=== PATIENT | female | born 1990 ===

== ENCOUNTER 2017-02-13 01:35 | Emergency (ER) | payer OTHER ==
[2017-02-13 02:02] VITALS: BMI 25.0
[2017-02-13 02:03] VITALS: BP 108/69; PULSE 76; RESP 18; TEMP 98; O2SAT 99
[2017-02-13] MEDS ORDERED: Sodium Chloride 0.9% 1,000 ML IV STA (02:03)
[2017-02-13] MEDS ORDERED: Alum-Mag Hydrox-Simethicone Susp (30 mL) PO ONE (02:09)
--- NOTE | 2017-02-13 02:09 | ED PDOC ---
HPI: Abdomen Time Seen by Provider: 02/13/17 02:07 Chief Complaint (Nursing): Abdominal Pain Chief Complaint (Provider): abdominal pain History Per: Patient (26 y/o female here with complaint epigastric pain intermittently x 4 days gradually worsening. Took motrin with no relief. Denies any dysuria. No h/o abdominal surgeries.) Past Medical History Reviewed: Historical Data, Nursing Documentation, Vital Signs Vital Signs: Last Vital Signs Temp 98.0 F 02/13/17 02:00 Pulse 76 02/13/17 02:00 Resp 18 02/13/17 02:00 BP 108/69 02/13/17 02:00 Pulse Ox 99 02/13/17 02:09 - Medical History PMH: Anxiety Denies: Chronic Kidney Disease - Family History Family History: States: No Known Family Hx - Home Medications Home Medications: Ambulatory Orders Medication Instructions Recorded Ibuprofen [Motrin] 600 mg PO Q6H PRN #20 tab 05/08/15 Nitrofurantoin Macrocrystals 100 mg PO BID #14 cap 05/08/15 [Macrobid] Ranitidine HCl [Zantac] 150 mg PO Q12 PRN #10 tablet 02/13/17 - Allergies Allergies/Adverse Reactions: Allergies Allergy/AdvReac Type Severity Reaction Status Date / Time No Known Allergies Allergy Verified 05/08/15 12:52 Review of Systems ROS Statement: Except As Marked, All Systems Reviewed And Found Negative Gastrointestinal: Positive for: Abdominal Pain Physical Exam - Reviewed Nursing Documentation Reviewed: Yes Vital Signs Reviewed: Yes - Physical Exam Appears: Positive for: Well, Non-toxic, No Acute Distress Head Exam: Positive for: ATRAUMATIC, NORMAL INSPECTION, NORMOCEPHALIC Skin: Positive for: Normal Color, Warm, DRY Eye Exam: Positive for: EOMI, Normal appearance, PERRL ENT: Positive for: Normal ENT Inspection Neck: Positive for: Normal, Painless ROM Cardiovascular/Chest: Positive for: Regular Rate, Rhythm Respiratory: Positive for: CNT, Normal Breath Sounds Gastrointestinal/Abdominal: Positive for: Normal Exam, Bowel Sounds, Soft Back: Positive for: Normal Inspection Extremity: Positive for: Normal ROM Neurologic/Psych: Positive for: Alert, Oriented - Laboratory Results Result Diagrams: 02/13/17 02:36 02/13/17 02:36 Urine POC: Negative Urine dip results: Positive for: Leukocyte Esterase (trace). Negative for: Blood, Ketones, Glucose, Bilirubin, Protein - ECG O2 Sat by Pulse Oximetry: 99 - Progress ED Course And Treament: pepcid 20 mg iv x 1 dose zofran 4 mg i vx 1 dose maalox 30 ml po lidocaine viscous 5 ml po x 1 dose Disposition - Clinical Impression Clinical Impression: Gastritis - Patient ED Disposition Is Patient to be Admitted: No - Disposition Referrals: [facility] [Outside] Disposition: Routine/Home Disposition Time: 03:12 Condition: FAIR Prescriptions: Ranitidine HCl [Zantac] 150 mg PO Q12 PRN #10 tablet PRN Reason: Pain, Moderate (4-7) Instructions: Gastritis (GEN), Diet for Ulcers and Gastritis (GEN) Forms: [employer] (Persian), [facility] ED School/Work Excuse Print Language: YAKUT
[2017-02-13] MEDS ORDERED: Alum-Mag Hydrox-Simethicone Susp (30 mL) ONE (02:16)
[2017-02-13 02:29] LABS: SQUAMOUS EPITHIAL 2 /hpf (0-5); URINE BACTERIA RARE (<OCC); URINE BILIRUBIN NEGATIVE (NEGATIVE); URINE BLOOD SMALL (NEGATIVE); URINE CLARITY SLIGHTY-CLOUDY (Clear); URINE COLOR YELLOW (YELLOW); URINE GLUCOSE (UA) NEG (Normal); URINE LEUKOCYTE ESTERASE NEG Leu/uL (Negative); URINE NITRATE NEGATIVE (NEGATIVE); URINE PROTEIN NEGATIVE (NEGATIVE); URINE UROBILINOGEN 0.2-1.0 mg/dL (0.2-1.0)
[2017-02-13 02:38] LABS: BASO # 0.1 K/uL (0.0-0.2); BASO % 0.4 % (0.0-2.0); EOS # 0.1 K/uL (0.0-0.7); HEMOGLOBIN 12.2 g/dL (12.0-16.0); LYMPH # 1.8 K/uL (1.0-4.3); LYMPH % 12.8 % (20.0-40.0); MEAN CELL VOLUME 87.2 fl (81.0-99.0); MEAN CORPUSCULAR HEMOGLOBIN 28.6 pg (27.0-31.0); MEAN CORPUSCULAR HGB CONC 32.8 g/dL (33.0-37.0); MEAN PLATELET VOLUME 8.6 fl (7.2-11.7); MONO # 0.7 K/uL (0.0-0.8); MONO % 4.7 % (0.0-10.0); NEUT # 11.3 K/uL (1.8-7.0); NEUT % 81.1 % (50.0-75.0); RBC 4.26 Mil/uL (3.80-5.20); RED CELL DISTRIBUTION WIDTH 13.2 % (11.5-14.5); WHITE BLOOD COUNT 13.9 K/uL (4.8-10.8)
[2017-02-13 02:52] LABS: ALB/GLOB RATIO 1.3 (1.0-2.1); ALBUMIN 3.9 g/dL (3.5-5.0); ALT/SGPT 33 U/L (9-52); AST/SGOT 21 U/L (14-36); BLOOD UREA NITROGEN 11 mg/dl (7-17); CALCIUM 8.7 mg/dL (8.4-10.2); GFR AFRICAN-AMERICAN > 60; GFR NON-AFRICAN AMERICAN > 60; LIPASE 40 U/L (23-300)
== END 2017-02-13 04:19 | disposition home or self-care (01) ==
LOC: H.ER 01:35
DX: K29.70 Gastritis, unspecified, without bleeding (principal); F41.9 Anxiety disorder, unspecified
CPT/HCPCS: 80053; 81003; 83690; 85025; 87086; 96374; 96375; 99283; J2405; J7040

== ENCOUNTER 2018-05-18 05:05 | Emergency (ER) | payer OTHER ==
[2018-05-18 05:16] VITALS: BMI 28.7
[2018-05-18] MEDS ORDERED: Sodium Chloride 0.9% 1,000 ML IV STA (05:53)
--- NOTE | 2018-05-18 05:58 | ED PDOC ---
HPI: Abdomen Time Seen by Provider: 05/18/18 05:13 Chief Complaint (Nursing): Abdominal Pain Chief Complaint (Provider): Abdominal Pain History Per: Patient Onset/Duration Of Symptoms: Days (x1) Current Symptoms Are (Timing): Still Present Location Of Pain/Discomfort: Epigastric Quality Of Discomfort: "Pain" Additional Complaint(s): 27 year old female with history of anxiety and gastritis presents to the ED with one day of midepigastric pain. Patient denies right sided abdominal pain. Patient took Zantac prior to arrival. No further complaints. PMD: none Past Medical History Reviewed: Historical Data, Nursing Documentation, Vital Signs Vital Signs: Last Vital Signs Temp 97.6 F 05/18/18 05:16 Pulse 73 05/18/18 05:16 Resp 18 05/18/18 05:16 BP 126/76 05/18/18 05:16 Pulse Ox 98 05/18/18 05:16 - Medical History PMH: Anxiety, Gastritis Denies: Chronic Kidney Disease - Surgical History Surgical History: No Surg Hx - Family History Family History: States: Unknown Family Hx - Home Medications Home Medications: Ambulatory Orders Medication Instructions Recorded Ibuprofen [Motrin] 600 mg PO Q6H PRN #20 tab 05/08/15 Nitrofurantoin Macrocrystals 100 mg PO BID #14 cap 05/08/15 [Macrobid] Ranitidine HCl [Zantac] 150 mg PO Q12 PRN #10 tablet 02/13/17 - Allergies Allergies/Adverse Reactions: Allergies Allergy/AdvReac Type Severity Reaction Status Date / Time No Known Allergies Allergy Verified 05/18/18 05:16 Review of Systems ROS Statement: Except As Marked, All Systems Reviewed And Found Negative Gastrointestinal: Positive for: Abdominal Pain (epigastric) Physical Exam - Reviewed Nursing Documentation Reviewed: Yes Vital Signs Reviewed: Yes - Physical Exam Appears: Positive for: Non-toxic, No Acute Distress Head Exam: Positive for: ATRAUMATIC, NORMOCEPHALIC Skin: Positive for: Normal Color, Warm, Dry Eye Exam: Positive for: Normal appearance, EOMI, PERRL ENT: Positive for: Normal ENT Inspection Neck: Positive for: Normal Cardiovascular/Chest: Positive for: Regular Rate, Rhythm. Negative for: Murmur Respiratory: Positive for: Normal Breath Sounds. Negative for: Respiratory Distress Gastrointestinal/Abdominal: Positive for: Soft, Tenderness (mild midepigastric tenderness to palpation ) Extremity: Positive for: Normal ROM (upper and lower). Negative for: Pedal Edema, Deformity Neurological/Psych: Positive for: Awake, Alert, Oriented (x3) - Laboratory Results Result Diagrams: 05/18/18 06:17 05/18/18 06:17 - ECG O2 Sat by Pulse Oximetry: 98 (RA) Pulse Ox Interpretation: Normal Medical Decision Making Medical Decision Making: Time: 05 Plan: abdominal pain, midepigastric rule out gastritis, rule out electrolyte abnormality --CMP --Lipase --CBC --IV fluids --Pepcid 20 mg IVP --Zofran 4 mg IV Time: 0700 --Patient signed out to Dr. Rodriguez, pending labs/reeval. -------- --------- Scribe Attestation: Documented by Leslie Matthews, acting as a scribe for Kyler Henderson MD. Provider Scribe Attestation: All medical record entries made by the Scribe were at my direction and personally dictated by me. I have reviewed the chart and agree that the record accurately reflects my personal performance of the history, physical exam, medical decision making, and the department course for this patient. I have also personally directed, reviewed, and agree with the discharge instructions and disposition. Disposition - Clinical Impression Clinical Impression: Abdominal discomfort - Patient ED Disposition Is Patient to be Admitted: Transfer of Care - Disposition Disposition: Transfer of Care Disposition Time: 07:00 Condition: STABLE Forms: [employer] (Greenlandic)
[2018-05-18 06:21] LABS: BASO % 0.3 % (0.0-2.0); EOS # 0.1 K/uL (0.0-0.7); EOS % 0.4 % (0.0-4.0); HEMOGLOBIN 13.1 g/dL (12.0-16.0); LYMPH # 3.3 K/uL (1.0-4.3); LYMPH % 23.8 % (20.0-40.0); MEAN CELL VOLUME 86.5 fl (81.0-99.0); MEAN CORPUSCULAR HEMOGLOBIN 28.9 pg (27.0-31.0); MEAN CORPUSCULAR HGB CONC 33.4 g/dL (33.0-37.0); MEAN PLATELET VOLUME 8.9 fl (7.2-11.7); MONO # 0.9 K/uL (0.0-0.8); MONO % 6.5 % (0.0-10.0); NEUT # 9.5 K/uL (1.8-7.0); RBC 4.53 Mil/uL (3.80-5.20); RED CELL DISTRIBUTION WIDTH 13.2 % (11.5-14.5); WHITE BLOOD COUNT 13.7 K/uL (4.8-10.8)
[2018-05-18] MEDS ORDERED: Morphine 4 MG/ML VIAL IV ONE (06:25)
[2018-05-18] MEDS ORDERED: Morphine 4 MG/ML VIAL ONE (06:27)
[2018-05-18 06:29] LABS: ALB/GLOB RATIO 1.3 (1.0-2.1); ALT/SGPT 43 U/L (9-52); AST/SGOT 25 U/L (14-36); BLOOD UREA NITROGEN 12 mg/dl (7-17); CALCIUM 9.3 mg/dL (8.4-10.2); GFR NON-AFRICAN AMERICAN > 60; LIPASE 31 U/L (23-300)
--- NOTE | 2018-05-18 07:07 | ED PDOC ---
- Laboratory Results Result Diagrams: 05/18/18 06:17 05/18/18 06:17 Lab Results: Total Bilirubin 0.4 mg/dl (0.2-1.3) 05/18/18 06:17 AST 25 U/L (14-36) 05/18/18 06:17 ALT 43 U/L (9-52) 05/18/18 06:17 Alkaline Phosphatase 69 U/L (38-126) 05/18/18 06:17 Total Protein 7.1 G/DL (6.3-8.2) 05/18/18 06:17 Albumin 4.0 g/dL (3.5-5.0) 05/18/18 06:17 Globulin 3.1 gm/dL (2.2-3.9) 05/18/18 06:17 Albumin/Globulin Ratio 1.3 (1.0-2.1) 05/18/18 06:17 Lipase 31 U/L (23-300) 05/18/18 06:17 - ECG O2 Sat by Pulse Oximetry: 98 (RA) Medical Decision Making Medical Decision Making: Time: 0700 --Patient is endorsed to provider by Dr. Henderson, pending US gallbladder and lab results then final disposition. Time: 0900 --US gallbladder FINDINGS: LIVER: Measures 13.6 cm in length. Mildly diffusely increased echogenicity of the liver parenchyma. No mass. No intrahepatic bile duct dilatation. Consider borderline hepatic steatosis or other hepatic infiltrative process. GALLBLADDER: The gallbladder is distended without mural thickening or pericholecystic fluid collection evident. No cholelithiasis appreciable. COMMON BILE DUCT: Measures 4.5 mm. No stones. No dilatation. PANCREAS: The body of the pancreas appears unremarkable but the head and tail are obscured by overling bowel/stomach gas. RIGHT KIDNEY: Measures 9.7 cm in length. Normal echogenicity. No calculus, mass, or hydronephrosis. AORTA: No aneurysmal dilatation. IVC: Unremarkable. OTHER FINDINGS: None . IMPRESSION: Other than partial imaging of the pancreas and borderline hepatic steatosis (or other hepatic infiltrative process), the remainder the examination is unremarkable limited to the right upper quadrant anatomy in the abdomen. Scribe Attestation: Documented by Julisa Gee, acting as a scribe for Soumya Rodriguez MD. Provider Scribe Attestation: All medical record entries made by the Scribe were at my direction and personally dictated by me. I have reviewed the chart and agree that the record accurately reflects my personal performance of the history, physical exam, medical decision making, and the department course for this patient. I have also personally directed, reviewed, and agree with the discharge instructions and disposition. 11.45a - labs and imaging reviewed. Patient is without pain or discomfort. Will d/c with pepcid and zofran and followup in the clinic when [facility] is approved. Disposition Doctor Will See Patient In The: Office Counseled Patient/Family Regarding: Diagnosis - Clinical Impression Clinical Impression: Gastritis - POA Present On Arrival: None - Disposition Referrals: [facility] [Outside] [facility] [Outside] Disposition: Routine/Home Disposition Time: 11:55 Condition: IMPROVED Prescriptions: Famotidine [Pepcid] 20 mg PO BID #28 tab Ondansetron [Zofran] 4 mg PO Q8H #9 tab Instructions: Gastritis Forms: [employer] (Lebanese), [facility] ED School/Work Excuse Print Language: GEORGIAN
--- NOTE | 2018-05-18 10:33 | US ---
Date of service: 05/18/2018 HISTORY: abd pain COMPARISON: None. TECHNIQUE: Sonographic evaluation of the right upper quadrant of the abdomen. FINDINGS: LIVER: Measures 13.6 cm in length. Mildly diffusely increased echogenicity of the liver parenchyma. No mass. No intrahepatic bile duct dilatation. Consider borderline hepatic steatosis or other hepatic infiltrative process. GALLBLADDER: The gallbladder is distended without mural thickening or pericholecystic fluid collection evident. No cholelithiasis appreciable. COMMON BILE DUCT: Measures 4.5 mm. No stones. No dilatation. PANCREAS: The body of the pancreas appears unremarkable but the head and tail are obscured by overling bowel/stomach gas. RIGHT KIDNEY: Measures 9.7 cm in length. Normal echogenicity. No calculus, mass, or hydronephrosis. AORTA: No aneurysmal dilatation. IVC: Unremarkable. OTHER FINDINGS: None . IMPRESSION: Other than partial imaging of the pancreas and borderline hepatic steatosis (or other hepatic infiltrative process), the remainder the examination is unremarkable limited to the right upper quadrant anatomy in the abdomen.
[2018-05-18 12:11] VITALS: BP 105/63; PULSE 69; RESP 16; TEMP 98.6; O2SAT 99
== END 2018-05-18 12:15 | disposition home or self-care (01) ==
LOC: H.ER 05:05
DX: K29.70 Gastritis, unspecified, without bleeding (principal)
CPT/HCPCS: 76705; 80053; 81025; 83690; 85025; 96361; 96374; 96375; 99285; J1885; J2270; J2405; J7030

== ENCOUNTER 2018-07-24 22:22 | Inpatient (IN) | payer MEDICAID, OTHER ==
[2018-07-24 22:22] VITALS: BMI 28.7
[2018-07-24] MEDS ORDERED: Sodium Chloride 0.9% 1,000 ML IV STA (22:59)
--- NOTE | 2018-07-24 23:00 | ED PDOC ---
HPI: Abdomen Chief Complaint (Provider): abdominal pain History Per: Patient History/Exam Limitations: no limitations Onset/Duration Of Symptoms: Hrs (10) Current Symptoms Are (Timing): Still Present Location Of Pain/Discomfort: Diffuse Associated Symptoms: Nausea, Vomiting Additional Complaint(s): 28 y/o female presents for evaluation of abdominal pain x 10 hours. Associated nausea, vomiting x 2. Denies fever, chest pain, shortness of breath, palpitations, changes in bowel movements, urinary symptoms. Tried Zantac with little relief. <Vernell Liu - Last Filed: 07/25/18 05:04> <Wild Fuller - Last Filed: 07/25/18 05:57> Time Seen by Provider: 07/24/18 22:45 Chief Complaint (Nursing): Abdominal Pain Past Medical History Reviewed: Historical Data, Nursing Documentation, Vital Signs Vital Signs: Last Vital Signs Temp 97.5 F L 07/24/18 22:36 Pulse 68 07/24/18 22:36 Resp 18 07/24/18 22:36 BP 94/60 L 07/24/18 22:36 Pulse Ox 99 07/24/18 22:36 Primary Care Provider: Procedure,Nonphys - Medical History PMH: Anxiety, Gastritis Denies: Chronic Kidney Disease - Surgical History Surgical History: No Surg Hx - Family History Family History: States: Unknown Family Hx <Vernell Liu - Last Filed: 07/25/18 05:04> Vital Signs: Last Vital Signs Temp 98.8 F 07/25/18 05:10 Pulse 68 07/25/18 05:10 Resp 18 07/25/18 05:10 BP 109/63 07/25/18 05:10 Pulse Ox 97 07/25/18 05:10 <Wild Fuller - Last Filed: 07/25/18 05:57> - Home Medications Home Medications: Ambulatory Orders Medication Instructions Recorded Ibuprofen [Motrin] 600 mg PO Q6H PRN #20 tab 05/08/15 Nitrofurantoin Macrocrystals 100 mg PO BID #14 cap 05/08/15 [Macrobid] Ranitidine HCl [Zantac] 150 mg PO Q12 PRN #10 tablet 02/13/17 Famotidine [Pepcid] 20 mg PO BID #28 tab 05/18/18 Ondansetron [Zofran] 4 mg PO Q8H #9 tab 05/18/18 - Allergies Allergies/Adverse Reactions: Allergies Allergy/AdvReac Type Severity Reaction Status Date / Time No Known Allergies Allergy Verified 05/18/18 05:16 Review of Systems ROS Statement: Except As Marked, All Systems Reviewed And Found Negative Gastrointestinal: Positive for: Nausea, Vomiting, Abdominal Pain <Sola Liuanda C - Last Filed: 07/25/18 05:04> Physical Exam - Reviewed Nursing Documentation Reviewed: Yes Vital Signs Reviewed: Yes - Physical Exam Appears: Positive for: Well, Non-toxic, Uncomfortable Head Exam: Positive for: ATRAUMATIC, NORMAL INSPECTION, NORMOCEPHALIC Skin: Positive for: Normal Color Eye Exam: Positive for: Normal appearance ENT: Positive for: Normal ENT Inspection Cardiovascular/Chest: Positive for: Regular Rate, Rhythm Respiratory: Positive for: Normal Breath Sounds Gastrointestinal/Abdominal: Positive for: Bowel Sounds, Soft, Tenderness (diffuse, worse epigastric) Back: Positive for: Normal Inspection Extremity: Positive for: Normal ROM Neurological/Psych: Positive for: Awake, Alert, Oriented (x3) <NoeVernell C - Last Filed: 07/25/18 05:04> - Laboratory Results Result Diagrams: 07/24/18 23:14 07/24/18 23:14 - ECG O2 Sat by Pulse Oximetry: 99 - Progress ED Course And Treament: -upreg -udip -cbc -cmp -lipase -RUQ us -IV toradol -IV zofran -IV pepcid -IV NS bolus EXAM: US Abdomen, Right Upper Quadrant. CLINICAL HISTORY: Pain TECHNIQUE: Right upper quadrant sonography performed with image documentation. COMPARISON: None provided. FINDINGS: LIVER: Liver is normal in size measuring 15.3 cm and demonstrates normal echogenicity without focal lesions identified. GALLBLADDER: The gallbladder wall demonstrates no thickening. There are no stones, sludge wall edema. Sonographic Ruiz sign is negative. COMMON BILE DUCT: Common bile duct is normal in caliber measuring 0.4 cm. PANCREAS: Pancreas has a normal sonographic appearance. RIGHT KIDNEY: Right kidney measures 9.9 cm and demonstrates no mass, cyst or calculi. MISCELLANEOUS: The patient is not NPO at the time of examination. IVC and aorta as visualized appear within normal limits. IMPRESSION: 1. Liver is normal in size measuring 15.3 cm and demonstrates normal echogenicity without focal lesions identified. 2. The patient is not NPO at the time of examination. 3. The gallbladder wall demonstrates no thickening. There are no stones, sludge or wall edema. Sonographic Ruiz sign is negative. 4. Common bile duct is normal in caliber measuring 0.4 cm. 5. Pancreas has a normal sonographic appearance. 6. IVC and aorta as visualized appear within normal limits. 7. Right kidney measures 9.9 cm and demonstrates no mass, cyst or calculi. CT SCAN OF THE ABDOMEN AND PELVIS WITH CONTRAST. CLINICAL HISTORY: Abdominal pain. Vomiting. TECHNIQUE: Multiple axial and coronal CT images were obtained through the abdomen and pelvis after administration of intravenous and oral contrast material. COMMENTS: Large, diffusely thickened and enhancing appendix measuring 1.4 cm. Diffuse thickening and enhancing wall of the appendix with surrounding inflammatory fat stranding. Findings are suggestive of acute appendicitis without perforation or abscess formation. Mild amount of free pelvic fluid. Moderate amount of fecal residue in the large bowels. The liver is of uniform attenuation without mass or defect. There is no intra or extrahepatic biliary ductal dilatation. The spleen is normal. The gallbladder is within normal limits. The pancreas is of normal contour and attenuation characteristics. There is no evidence of adrenal mass. Both kidneys demonstrate prompt and equal nephrograms. The kidneys are normal in size, shape and configuration. There is no evidence of renal or ureteral mass. No renal or ureteral calculi are identified. There is no hydroureter or hydronephrosis. There is no bowel wall thickening. No evidence for small or large bowel obstruction. There is no evidence of abdominal ascites or lymphadenopathy. There is no evidence of intrinsic or extrinsic bladder mass. Images of the lung bases show no evidence of pleural or parenchymal mass. There are no pleural effusions. The bony structures are free of lytic or blastic lesions. IMPRESSION: Large, diffusely thickened and enhancing appendix measuring 1.4 cm. Diffuse thickening and enhancing wall of the appendix with surrounding inflammatory fat stranding. Findings are suggestive of acute appendicitis without perforation or abscess formation. Mild amount of free pelvic fluid. Moderate amount of fecal residue in the large bowels. Thank you for your kind referral of this patient Case discussed with Dr. Esteves, surgical garment assembly supervisor on-call <Vernell Liu - Last Filed: 07/25/18 05:04> - Laboratory Results Result Diagrams: 07/24/18 23:14 07/24/18 23:14 Lab Results: pO2 81 mm/Hg (30-55) H 07/25/18 05:53 VBG pH 7.45 (7.32-7.43) H 07/25/18 05:53 VBG pCO2 34 mmHg (40-60) L 07/25/18 05:53 VBG HCO3 25.0 mmol/L 07/25/18 05:53 VBG Total CO2 24.6 mmol/L (22-28) 07/25/18 05:53 VBG O2 Sat (Calc) 99.6 % (40-65) H 07/25/18 05:53 VBG Base Excess 0.1 mmol/L (0.0-2.0) 07/25/18 05:53 VBG Potassium 3.8 mmol/L (3.6-5.2) 07/25/18 05:53 Sodium 135.0 mmol/L (132-148) 07/25/18 05:53 Chloride 106.0 mmol/L (98-107) 07/25/18 05:53 Glucose 104 mg/dL (65-105) 07/25/18 05:53 Lactate 1.4 mmol/L (0.7-2.1) 07/25/18 05:53 FiO2 21.0 % 07/25/18 05:53 PT 11.1 Seconds (9.8-13.1) 07/25/18 05:01 INR 1.0 07/25/18 05:01 APTT 30.7 Seconds (25.6-37.1) 07/25/18 05:01 Total Bilirubin 0.5 mg/dl (0.2-1.3) 07/24/18 23:14 AST 22 U/L (14-36) 07/24/18 23:14 ALT 30 U/L (9-52) 07/24/18 23:14 Alkaline Phosphatase 70 U/L (38-126) 07/24/18 23:14 Total Protein 7.7 G/DL (6.3-8.2) 07/24/18 23:14 Albumin 4.6 g/dL (3.5-5.0) 07/24/18 23:14 Globulin 3.1 gm/dL (2.2-3.9) 07/24/18 23:14 Albumin/Globulin Ratio 1.5 (1.0-2.1) 07/24/18 23:14 Lipase 35 U/L (23-300) 07/24/18 23:14 <Wild Fuller - Last Filed: 07/25/18 05:57> Medical Decision Making Medical Decision Makin Patient with negative lactate on VBG Seen by Dr. Esteves Will admit to Dr. Holliday's service <Wild Fuller - Last Filed: 07/25/18 05:57> Disposition - Disposition Disposition Time: 05:04 Patient Signed Over To: Wild Fuller Handoff Comments: pending surgery eval <Vernell Liu - Last Filed: 07/25/18 05:04> - Patient ED Disposition Is Patient to be Admitted: Yes Counseled Patient/Family Regarding: Studies Performed, Diagnosis - Disposition Disposition Time: 05:30 <Wild Fuller - Last Filed: 07/25/18 05:57> - Clinical Impression Clinical Impression: Appendicitis - Disposition Condition: FAIR
[2018-07-24 23:21] LABS: BASO % 0.3 % (0.0-2.0); EOS # 0.2 K/uL (0.0-0.7); EOS % 1.3 % (0.0-4.0); HEMOGLOBIN 13.6 g/dL (12.0-16.0); LYMPH # 2.1 K/uL (1.0-4.3); MEAN CELL VOLUME 86.5 fl (81.0-99.0); MEAN CORPUSCULAR HEMOGLOBIN 28.6 pg (27.0-31.0); MEAN CORPUSCULAR HGB CONC 33.1 g/dL (33.0-37.0); MEAN PLATELET VOLUME 8.7 fl (7.2-11.7); MONO # 0.8 K/uL (0.0-0.8); MONO % 5.4 % (0.0-10.0); NEUT # 11.6 K/uL (1.8-7.0); RBC 4.76 Mil/uL (3.80-5.20); RED CELL DISTRIBUTION WIDTH 13.1 % (11.5-14.5); WHITE BLOOD COUNT 14.6 K/uL (4.8-10.8)
[2018-07-24 23:29] LABS: ALB/GLOB RATIO 1.5 (1.0-2.1); ALBUMIN 4.6 g/dL (3.5-5.0); ALT/SGPT 30 U/L (9-52); AST/SGOT 22 U/L (14-36); BLOOD UREA NITROGEN 13 mg/dl (7-17); CALCIUM 9.3 mg/dL (8.4-10.2); GFR NON-AFRICAN AMERICAN > 60; LIPASE 35 U/L (23-300)
[2018-07-25] MEDS ORDERED: Iohexol 240 (50 ml) PO ONE (00:50)
[2018-07-25] MEDS ORDERED: Iohexol 300 100 ML IJ ONE (01:11)
[2018-07-25] MEDS ORDERED: Sodium Chloride 0.9% 50 ML IV ONE (01:11)
[2018-07-25] MEDS ORDERED: Piperacillin/Tazobact 3.375 GM in Sodium Chloride 0.9% 100 ML IV ONE (04:24)
[2018-07-25] MEDS ORDERED: Piperacillin/Tazobact 3.375 gm Inj IVPB ONE (05:21)
[2018-07-25 05:26] LABS: PROTHROMBIN TIME 11.1 Seconds (9.8-13.1)
[2018-07-25 05:28] LABS: PARTIAL THROMBOPLASTIN TIME 30.7 Seconds (25.6-37.1)
[2018-07-25 05:56] LABS: VENOUS BLOOD GAS BASE EXCESS 0.1 mmol/L (0.0-2.0); VENOUS BLOOD GAS PCO2 34 mmHg (40-60); VENOUS BLOOD GAS PO2 81 mm/Hg (30-55); VENOUS BLOOD PH 7.45 (7.32-7.43)
--- NOTE | 2018-07-25 06:13 | CP.PCM.HP ---
<Apollo Esteves - Last Filed: 07/25/18 06:32> History of Present Illness - History of Present Illness History of Present Illness: General Surgery H&P for Dr. Starr cc: abdominal pain, nausea/vomiting 28F with PMH of anxiety and gastritis presents to [facility] for complaint of abdominal pain and nausea/vomiting. Patient was seen and evaluated in the ED. Patient states that pain began yesterday at 1 pm. Patient states that pain was initially epigastric and periumbilical before moving to RLQ. Patient admits to multiple episodes of nausea/vomiting with NBNB emesis after onset of pain. Den ies fever/chills and diarrhea. SHe describes pain in RLQ as constant and sharp while pain in epigastrium is dull and aching. Eating/drinking aggravates her symptoms while nothing alleviates it. Patient admits to taking medication for gastritis but it did not help with this pain. Denies cp, SOB, palpitations, constipation, incontinence, recent illness, sick contacts, urinary symptoms. PMH: anxiety, gastritis PSH: denies ALL: NKDA Present on Admission - Present on Admission Any Indicators Present on Admission: No History of DVT/PE: No History of Uncontrolled Diabetes: No Decubitus Ulcer Present: No Review of Systems - Review of Systems All systems: reviewed and no additional remarkable complaints except (as per HPI) Past Patient History - Past Social History Smoking Status: Never Smoked - CARDIAC Hx Cardiac Disorders: No - PULMONARY Hx Respiratory Disorders: No - NEUROLOGICAL Hx Neurological Disorder: No - HEENT Hx HEENT Problems: No - RENAL Hx Chronic Kidney Disease: No - ENDOCRINE/METABOLIC Hx Endocrine Disorders: No - HEMATOLOGICAL/ONCOLOGICAL Hx Blood Disorders: No - INTEGUMENTARY Hx Dermatological Problems: No - MUSCULOSKELETAL/RHEUMATOLOGICAL Hx Musculoskeletal Disorders: No - GASTROINTESTINAL Hx Gastritis: Yes - GENITOURINARY/GYNECOLOGICAL Hx Genitourinary Disorders: No - PSYCHIATRIC Hx Anxiety: Yes - SURGICAL HISTORY Hx Surgeries: No Meds Allergies/Adverse Reactions: Allergies Allergy/AdvReac Type Severity Reaction Status Date / Time No Known Allergies Allergy Verified 05/18/18 05:16 Physical Exam - Constitutional Appears: No Acute Distress - Head Exam Head Exam: ATRAUMATIC, NORMOCEPHALIC - Eye Exam Eye Exam: EOMI, Normal appearance Pupil Exam: PERRL - ENT Exam ENT Exam: Mucous Membranes Moist - Respiratory Exam Respiratory Exam: NORMAL BREATHING PATTERN - Cardiovascular Exam Cardiovascular Exam: REGULAR RHYTHM - GI/Abdominal Exam GI & Abdominal Exam: Normal Bowel Sounds, Soft, Tenderness (RLQ, epigastrium). absent: Distended, Firm, Guarding, Hernia, Rebound, Rigid Additional comments: +mcburney's point and + rovsing - Extremities Exam Extremities exam: Positive for: normal capillary refill, pedal pulses present. Negative for: calf tenderness - Back Exam Back exam: absent: CVA tenderness (L), CVA tenderness (R) - Neurological Exam Neurological exam: Alert, CN II-XII Intact, Oriented x3 - Psychiatric Exam Psychiatric exam: Normal Affect, Normal Mood - Skin Skin Exam: Dry, Intact, Warm Results - Vital Signs Recent Vital Signs: Last Vital Signs Temp 98.8 F 07/25/18 05:10 Pulse 68 07/25/18 05:10 Resp 18 07/25/18 05:10 BP 109/63 07/25/18 05:10 Pulse Ox 97 07/25/18 05:10 - Labs Result Diagrams: 07/24/18 23:14 07/24/18 23:14 Labs: Laboratory Results - last 24 hr 07/24/18 07/24/18 07/25/18 23:14 23:14 05:01 WBC 14.6 H RBC 4.76 Hgb 13.6 Hct 41.1 MCV 86.5 MCH 28.6 MCHC 33.1 RDW 13.1 Plt Count 305 MPV 8.7 Neut % (Auto) 79.0 H Lymph % (Auto) 14.0 L [place] % (Auto) 5.4 Eos % (Auto) 1.3 Baso % (Auto) 0.3 Neut # (Auto) 11.6 H Lymph # (Auto) 2.1 [place] # (Auto) 0.8 Eos # (Auto) 0.2 Baso # (Auto) 0.0 PT 11.1 INR 1.0 APTT 30.7 pO2 VBG pH VBG pCO2 VBG HCO3 VBG Total CO2 VBG O2 Sat (Calc) VBG Base Excess VBG Potassium Glucose Lactate FiO2 Sodium 135 Potassium 3.4 L Chloride 100 Carbon Dioxide 23 Anion Gap 15 BUN 13 Creatinine 0.5 L Est GFR ( Amer) > 60 Est GFR (Non-Af Amer) > 60 Random Glucose 132 H Calcium 9.3 Total Bilirubin 0.5 AST 22 ALT 30 Alkaline Phosphatase 70 Total Protein 7.7 Albumin 4.6 Globulin 3.1 Albumin/Globulin Ratio 1.5 Lipase 35 Venous Blood Potassium 07/25/18 05:53 WBC RBC Hgb Hct MCV MCH MCHC RDW Plt Count MPV Neut % (Auto) Lymph % (Auto) [place] % (Auto) Eos % (Auto) Baso % (Auto) Neut # (Auto) Lymph # (Auto) [place] # (Auto) Eos # (Auto) Baso # (Auto) PT INR APTT pO2 81 H VBG pH 7.45 H VBG pCO2 34 L VBG HCO3 25.0 VBG Total CO2 24.6 VBG O2 Sat (Calc) 99.6 H VBG Base Excess 0.1 VBG Potassium 3.8 Glucose 104 Lactate 1.4 FiO2 21.0 Sodium 135.0 Potassium Chloride 106.0 Carbon Dioxide Anion Gap BUN Creatinine Est GFR ( Amer) Est GFR (Non-Af Amer) Random Glucose Calcium Total Bilirubin AST ALT Alkaline Phosphatase Total Protein Albumin Globulin Albumin/Globulin Ratio Lipase Venous Blood Potassium 3.8 Assessment & Plan - Assessment and Plan (Free Text) Assessment: 28F who presents with acute appendicitis Plan: -NPO -IVF -IV abx -Pain control -Anti-emetics PRN -PPI -Plan for laparoscopic appendectomy in OR -Further recs as per Dr. Kennedy PGY2 - Date & Time Date: 07/25/18 Time: 05:15 <Scott Lima - Last Filed: 07/27/18 16:21> Results - Vital Signs Recent Vital Signs: Last Vital Signs Temp 98 F 07/26/18 07:59 Pulse 58 L 07/26/18 07:59 Resp 20 07/26/18 07:59 BP 117/63 07/26/18 07:59 Pulse Ox 95 07/26/18 07:59 - Labs Result Diagrams: 07/26/18 05:50 07/26/18 05:50 Assessment & Plan - Assessment and Plan (Free Text) Assessment: All medical record entries made by the resident were at my direction. I have reviewed the chart and agree that the record accurately reflects my personal performance of the history, physical exam, and medical decision making.
--- NOTE | 2018-07-25 08:21 | RAD ---
Date of service: 07/25/2018 HISTORY: admit COMPARISON: No prior. TECHNIQUE: 1 view obtained. FINDINGS: LUNGS: No active pulmonary disease. Lung volumes low-normal PLEURA: No significant pleural effusion identified, no pneumothorax apparent. CARDIOVASCULAR: No aortic atherosclerotic calcification present. Normal cardiac size. No pulmonary vascular congestion. OSSEOUS STRUCTURES: No significant abnormalities. VISUALIZED UPPER ABDOMEN: Normal. OTHER FINDINGS: None. IMPRESSION: No active disease.
--- NOTE | 2018-07-25 10:15 | US ---
Date of service: 07/24/2018 HISTORY: abd pain, vomiting COMPARISON: None. TECHNIQUE: Sonographic evaluation of the right upper quadrant of the abdomen. FINDINGS: LIVER: Measures 15.3 cm in length. Normal echogenicity of the liver parenchyma. No mass. No intrahepatic bile duct dilatation. GALLBLADDER: Unremarkable. No gallstones. No gallbladder wall thickening or pericholecystic fluid. No sonographic Ruiz sign reported. COMMON BILE DUCT: Measures 4 mm. No stones. No dilatation. PANCREAS: Unremarkable as visualized. No mass. No ductal dilatation. RIGHT KIDNEY: Measures 9.9 cm in length. Normal echogenicity. No calculus, mass, or hydronephrosis. AORTA: No aneurysmal dilatation. IVC: Unremarkable. OTHER FINDINGS: None . IMPRESSION: Unremarkable exam. No gallbladder gross pancreatic pathology noted. No dilated ducts. Liver unremarkable appearing Concordant results (preliminary interpretation) provided by [facility].
--- NOTE | 2018-07-25 10:43 | CT ---
Date of service: 07/25/2018 PROCEDURE: CT Abdomen and Pelvis with contrast HISTORY: abd pain, vomiting COMPARISON: None. TECHNIQUE: Contrast dose: 90 mL Omnipaque 300 Radiation dose: Total exam DLP = 417.39 mGy-cm. This CT exam was performed using one or more of the following dose reduction techniques: Automated exposure control, adjustment of the mA and/or kV according to patient size, and/or use of iterative reconstruction technique. FINDINGS: LOWER THORAX: Unremarkable. LIVER: Unremarkable. No gross lesion or ductal dilatation. GALLBLADDER AND BILE DUCTS: Unremarkable. PANCREAS: Unremarkable. No gross lesion or ductal dilatation. SPLEEN: Unremarkable. ADRENALS: Unremarkable. No mass. KIDNEYS AND URETERS: Unremarkable. No hydronephrosis. No solid mass. VASCULATURE: Unremarkable. No aortic aneurysm. No aortic atherosclerotic calcification or mural plaque present. BOWEL: Unremarkable. No obstruction. No gross mural thickening. APPENDIX: Distended appendix thick walled with inferred mucosal thickening. Mild a phi appendiceal inflammatory changes. No stacey perforation or focal fluid/abscess formation appreciated. PERITONEUM: Some free fluid in the right hemipelvis noted.. No free air. LYMPH NODES: Unremarkable. No enlarged lymph nodes. BLADDER: Unremarkable. REPRODUCTIVE: Bilateral adnexal hypodensities compatible with probable ovarian cysts and/or follicles. Mild fluid in the right cul-de-sac BONES: No acute fracture. OTHER FINDINGS: None. IMPRESSION: Acute/subacute appendicitis. No stacey perforation or abscess. No bowel obstruction. Concordant results (preliminary interpretation) provided by [facility]. Bilateral adnexal hypodense appearance compatible with ovarian cyst/follicle changes. Small amount of right hemipelvic free cul-de-sac fluid as well.
--- NOTE | 2018-07-25 11:48 | CARD ---
APPROVED REPORT Date of service: 07/25/2018 EKG Measurement Heart [id number] <Conclusion> Normal sinus rhythm Normal ECG
[2018-07-25] MEDS: Piperacillin/Tazobact 3.375 GM in Sodium Chloride 0.9% 100 ML IVPB SCH ×3 (12:28→21:29)
[2018-07-25] MEDS: Lactated Ringer's 1,000 ML IV SCH ×4 (14:24→23:47)
[2018-07-25] MEDS ORDERED: Sevoflurane - Inhalation Anesthetic Liq (250 ml) ONE (15:14)
[2018-07-25] MEDS ORDERED: Bupivacaine 0.5% Inj(30mL) ONE (15:24)
[2018-07-25] MEDS ORDERED: Propofol 10 mg/ml Inj (20 ML) ONE (16:03)
[2018-07-25] MEDS ORDERED: Rocuronium 10 mg/ml (5 ml) ONE (16:03)
[2018-07-25] MEDS ORDERED: Etomidate 20 mg/10ml Inj IV ONE (16:03)
[2018-07-25] MEDS ORDERED: Lidocaine 4% (Laryng-O-Jet) Kit MM ONE (16:03)
[2018-07-25] MEDS ORDERED: Phenylephrine 10 mg/ml Inj ONE (16:05)
[2018-07-25] MEDS ORDERED: Dexamethasone 4 mg/1 ml ONE (16:05)
[2018-07-25] MEDS ORDERED: Succinylcholine Chloride 20 mg/ml Syr (5 ml) IV ONE (16:29)
[2018-07-25] MEDS ORDERED: Lactated Ringer's 1,000 ML IV ONE ×2 (16:58→17:50)
[2018-07-25] MEDS ORDERED: Midazolam 2 MG/2 ML VIAL ONE (17:01)
[2018-07-25] MEDS ORDERED: Neostigmine 1:1000 (1 mg/ml) Inj ONE (17:31)
--- NOTE | 2018-07-25 18:06 | PCM.SURG1 ---
Surgeon's Initial Post Op Note - Surgeon's Notes Surgeon: Dr. Starr Choral Director: [place] PGY2 Type of Anesthesia: General Endo, Local Anesthesia Administered By: Dr. Rosado Pre-Operative Diagnosis: Acute Appendicitis Operative Findings: See operative report Post-Operative Diagnosis: Same Operation Performed: Laparascopic Appendectomy Specimen/Specimens Removed: Appendix Estimated Blood Loss: EBL {In ML}: 10 Blood Products Given: N/A Drains Used: No Drains Post-Op Condition: Good Date of Surgery/Procedure: 07/25/18 Time of Surgery/Procedure: 18:06
[2018-07-25] MEDS ORDERED: HYDROmorphone 0.5 mg/0.5 ml ISec IVP PRN (18:08)
[2018-07-25] MEDS: Oxycodone/Acetaminophen 5/325 mg Tab PO PRN (21:29)
[2018-07-26 03:15] VITALS: PULSE 58
[2018-07-26] MEDS: Piperacillin/Tazobact 3.375 GM in Sodium Chloride 0.9% 100 ML IVPB SCH (03:39)
[2018-07-26] MEDS: Oxycodone/Acetaminophen 5/325 mg Tab PO PRN ×2 (03:40→08:16)
[2018-07-26] MEDS: Lactated Ringer's 1,000 ML IV SCH ×3 (05:18→06:25)
[2018-07-26 06:31] LABS: HEMOGLOBIN 13.2 g/dL (12.0-16.0); LYMPH # 0.8 K/uL (1.0-4.3); MEAN CELL VOLUME 87.2 fl (81.0-99.0); MEAN CORPUSCULAR HEMOGLOBIN 29.1 pg (27.0-31.0); MEAN CORPUSCULAR HGB CONC 33.4 g/dL (33.0-37.0); MEAN PLATELET VOLUME 8.9 fl (7.2-11.7); MONO # 0.2 K/uL (0.0-0.8); MONO % 1.9 % (0.0-10.0); NEUT # 10.8 K/uL (1.8-7.0); NEUT % 91.1 % (50.0-75.0); PLATELET COUNT 311 K/uL (130-400); RBC 4.52 Mil/uL (3.80-5.20); RED CELL DISTRIBUTION WIDTH 13.1 % (11.5-14.5); WHITE BLOOD COUNT 11.9 K/uL (4.8-10.8)
[2018-07-26 06:46] LABS: ALB/GLOB RATIO 1.3 (1.0-2.1); ALBUMIN 4.1 g/dL (3.5-5.0); ALT/SGPT 30 U/L (9-52); AST/SGOT 26 U/L (14-36); BLOOD UREA NITROGEN 7 mg/dl (7-17); CALCIUM 8.6 mg/dL (8.4-10.2); GFR NON-AFRICAN AMERICAN > 60
[2018-07-26 07:59] VITALS: BP 117/63; RESP 20; TEMP 98; O2SAT 95
[2018-07-26 08:09] LABS: BANDS 7 % (0-2); LYMPHOCYTE 7 % (20-50); MONOCYTE 2 % (0-10); NEUTROPHIL 84 % (42-75); PLATELET ESTIMATE NORMAL (NORMAL); TOTAL CELLS COUNTED 100
--- NOTE | 2018-07-26 08:10 | OP ---
PROCEDURE DATE: 07/25/2018 TIME OF SURGERY: 18:06 SURGEON: Scott Arteaga MD REGISTERED MIDWIFE: Héctor Peter DO, PGY-2 TYPE OF ANESTHESIA: General endotracheal and local anesthesia. ANESTHESIA ADMINISTERED BY: Iain Haro MD PREOPERATIVE DIAGNOSIS: Acute appendicitis. POSTOPERATIVE DIAGNOSIS: Acute appendicitis. OPERATION PERFORMED: Laparoscopic appendectomy. SPECIMEN REMOVED: The appendix. ESTIMATED BLOOD LOSS: 10 mL. BLOOD PRODUCTS: No intraoperative blood products were given. DRAINS: No drains were used. POSTOPERATIVE CONDITION: Good. INDICATIONS: The patient is a 28-year-old female with medical history of anxiety and gastritis who comes in with abdominal pain associated with nausea and vomiting located in the right lower quadrant. CT findings equivocal for an acute appendicitis. The patient was consented for laparoscopic appendectomy, possible open appendectomy. All risks and benefits of the procedure were discussed with the patient preoperatively and the consent was witnessed by the nursing staff. DESCRIPTION OF PROCEDURE: The patient was taken to the operating room and placed in the supine position on the operating room table. Anesthesia was induced with general endotracheal intubation. The left arm was tucked. The patient did not require Johnston catheterization. The abdomen was cleaned and prepped in the usual sterile manner using chlorhexidine prep. The infraumbilical region was grasped with two towel clips and raised superiorly. An 11 blade was used to make a 5 mm incision infraumbilically. Through the incision, the Veress needle was inserted into the abdomen and pneumoperitoneum was obtained successfully without any complications. A 5 mm trocar was then placed under Visiport under direct vision until the abdominal cavity was entered. A 30-degree camera was then inserted into the 5 mm trocar. The entire abdominal cavity was inspected and it was noted to have no iatrogenic injuries. Another 5 mm port was placed in the left lower quadrant. Using 0.5% 3 mL bupivacaine and a #11 blade was used to make a 5 mm trocar incision at the skin. Under direct vision, the trocar was inserted in the left lower quadrant. In the left upper quadrant, a 12 mm trocar was then placed. Again, 0.5% bupivacaine was used for local anesthesia. A #11 blade was used to make the skin incision and the trocar was then again inserted under direct vision. Nontraumatic graspers were used and the right lower quadrant was inspected. There was noted to have an acutely inflamed appendix. The tip of the appendix was grasped and raised up superiorly and anteriorly. The mesoappendix was then dissected using electrocautery and the hook cautery instrument until the peritoneal reflection was taken off the mesoappendix. This was carried down through the base of the appendix. Caution was taken to ensure that there was no iatrogenic injury done to the adjacent bowel using the cautery. Once the adequate exposure of the appendix was noted, an [place] stapler using the white load 45 mm was used to come across the base of the appendix and the remnant mesoappendix. Once the adequate positioning was noted, the stapler was fired and the remnant cecum was noted to be clean and dry with no active hemorrhage. The appendix was placed in the EndoCatch bag and removed via the left upper quadrant 12 mm incision and given to the hydrographical technical officer to send to laboratory for analysis. The left upper quadrant incision seemed to have some oozing, so the electrocautery instrument was used intraperitoneally to achieve hemostasis. The electrocautery instrument was again used at the level of the skin right under the skin to achieve hemostasis. Once adequate hemostasis was obtained, the rest of the trocar was removed under direct vision to ensure no bleeding was seen. Once the pneumoperitoneum was removed, the left upper quadrant incision was closed using 0 Vicryl at the abdominal fascia to approximate using a single interrupted 0 Vicryl on a UR-6 needle. The skin was then closed using 4-0 Monocryl in a running fashion. The two 5 mm trocar incisions were closed with Monocryl single interrupted fashion. Good closure was achieved. Dermabond was placed at this level of the skin and the instrument and sponge counts were declared correct by the operating room staff. The patient was successfully extubated, transferred to the stretcher and taken to the postoperative care unit in good stable condition. There was no immediate perioperative complications noted. The patient tolerated the procedure well. Héctor Peter DO Scott Arteaga MD
[2018-07-26 08:11] LABS: ANISOCYTOSIS SLIGHT; BURR CELLS SLIGHT; LARGE PLATELETS PRESENT; POIKILOCYTOSIS SLIGHT
--- NOTE | 2018-07-26 08:35 | CP.PCM.DIS ---
<PriyarolandoApollo del real - Last Filed: 07/26/18 09:42> Provider - Provider Date of Admission: 07/25/18 05:35 Attending physician: Scott Lima MD Time Spent in preparation of Discharge (in minutes): 45 Diagnosis - Discharge Diagnosis (1) S/P laparoscopic appendectomy Status: Acute (2) Appendicitis Status: Acute Hospital Course - Lab Results Lab Results: Micro Results 07/25/18 05:41 Blood Blood Culture - Preliminary NO GROWTH AFTER 24 HOURS 07/25/18 05:01 Blood Blood Culture - Preliminary NO GROWTH AFTER 24 HOURS Most Recent Lab Values WBC 11.9 K/uL (4.8-10.8) H 07/26/18 05:50 RBC 4.52 Mil/uL (3.80-5.20) 07/26/18 05:50 Hgb 13.2 g/dL (12.0-16.0) 07/26/18 05:50 Hct 39.4 % (34.0-47.0) 07/26/18 05:50 MCV 87.2 fl (81.0-99.0) 07/26/18 05:50 MCH 29.1 pg (27.0-31.0) 07/26/18 05:50 MCHC 33.4 g/dL (33.0-37.0) 07/26/18 05:50 RDW 13.1 % (11.5-14.5) 07/26/18 05:50 Plt Count 311 K/uL (130-400) 07/26/18 05:50 MPV 8.9 fl (7.2-11.7) 07/26/18 05:50 Neut % (Auto) 91.1 % (50.0-75.0) H 07/26/18 05:50 Lymph % (Auto) 7.0 % (20.0-40.0) L 07/26/18 05:50 [place] % (Auto) 1.9 % (0.0-10.0) 07/26/18 05:50 Eos % (Auto) 0.0 % (0.0-4.0) 07/26/18 05:50 Baso % (Auto) 0.0 % (0.0-2.0) 07/26/18 05:50 Neut # (Auto) 10.8 K/uL (1.8-7.0) H 07/26/18 05:50 Lymph # (Auto) 0.8 K/uL (1.0-4.3) L 07/26/18 05:50 [place] # (Auto) 0.2 K/uL (0.0-0.8) 07/26/18 05:50 Eos # (Auto) 0.0 K/uL (0.0-0.7) 07/26/18 05:50 Baso # (Auto) 0.0 K/uL (0.0-0.2) 07/26/18 05:50 Neutrophils % (Manual) 84 % (42-75) H 07/26/18 05:50 Band Neutrophils % 7 % (0-2) H 07/26/18 05:50 Lymphocytes % (Manual) 7 % (20-50) L 07/26/18 05:50 Monocytes % (Manual) 2 % (0-10) 07/26/18 05:50 Platelet Estimate Normal (NORMAL) 07/26/18 05:50 Large Platelets Present 07/26/18 05:50 Poikilocytosis (manual Slight 07/26/18 05:50 Anisocytosis (manual) Slight 07/26/18 05:50 [place] Cells Slight 07/26/18 05:50 PT 11.1 Seconds (9.8-13.1) 07/25/18 05:01 INR 1.0 07/25/18 05:01 APTT 30.7 Seconds (25.6-37.1) 07/25/18 05:01 pO2 81 mm/Hg (30-55) H 07/25/18 05:53 VBG pH 7.45 (7.32-7.43) H 07/25/18 05:53 VBG pCO2 34 mmHg (40-60) L 07/25/18 05:53 VBG HCO3 25.0 mmol/L 07/25/18 05:53 VBG Total CO2 24.6 mmol/L (22-28) 07/25/18 05:53 VBG O2 Sat (Calc) 99.6 % (40-65) H 07/25/18 05:53 VBG Base Excess 0.1 mmol/L (0.0-2.0) 07/25/18 05:53 VBG Potassium 3.8 mmol/L (3.6-5.2) 07/25/18 05:53 Sodium 135.0 mmol/L (132-148) 07/25/18 05:53 Chloride 106.0 mmol/L (98-107) 07/25/18 05:53 Glucose 104 mg/dL (65-105) 07/25/18 05:53 Lactate 1.4 mmol/L (0.7-2.1) 07/25/18 05:53 FiO2 21.0 % 07/25/18 05:53 Sodium 133 mmol/l (132-148) 07/26/18 05:50 Potassium 3.7 MMOL/L (3.6-5.0) 07/26/18 05:50 Chloride 101 mmol/L (98-107) 07/26/18 05:50 Carbon Dioxide 21 mmol/L (22-30) L 07/26/18 05:50 Anion Gap 15 (10-20) 07/26/18 05:50 BUN 7 mg/dl (7-17) 07/26/18 05:50 Creatinine 0.5 mg/dl (0.7-1.2) L 07/26/18 05:50 Est GFR ( Amer) > 60 07/26/18 05:50 Est GFR (Non-Af Amer) > 60 07/26/18 05:50 Random Glucose 135 mg/dL (65-105) H 07/26/18 05:50 Calcium 8.6 mg/dL (8.4-10.2) 07/26/18 05:50 Total Bilirubin 1.0 mg/dl (0.2-1.3) 07/26/18 05:50 AST 26 U/L (14-36) 07/26/18 05:50 ALT 30 U/L (9-52) 07/26/18 05:50 Alkaline Phosphatase 49 U/L (38-126) 07/26/18 05:50 Total Protein 7.1 G/DL (6.3-8.2) 07/26/18 05:50 Albumin 4.1 g/dL (3.5-5.0) 07/26/18 05:50 Globulin 3.1 gm/dL (2.2-3.9) 07/26/18 05:50 Albumin/Globulin Ratio 1.3 (1.0-2.1) 07/26/18 05:50 Lipase 35 U/L (23-300) 07/24/18 23:14 Venous Blood Potassium 3.8 mmol/L (3.6-5.2) 07/25/18 05:53 Blood Type O POSITIVE 07/25/18 05:41 Blood Type Confirm O POSITIVE 07/25/18 11:20 Antibody Screen Negative 07/25/18 05:41 BBK History Checked No verified bt 07/25/18 05:41 - Hospital Course Hospital Course: 28F with PMH of anxiety and gastritis presents to [facility] for complaint of abdominal pain and nausea/vomiting. Patient was seen and evaluated in the ED. Patient states that pain began yesterday at 1 pm. Patient states that pain was initially epigastric and periumbilical before moving to RLQ. Patient admits to multiple episodes of nausea/vomiting with NBNB emesis after onset of pain. Denies fever/chills and diarrhea. SHe describes pain in RLQ as constant and sharp while pain in epigastrium is dull and aching. Eating/drinking aggravates her symptoms while nothing alleviates it. Patient admits to taking medication for gastritis but it did not help with this pain. Denies cp, SOB, palpitations, constipation, incontinence, recent illness, sick contacts, urinary symptoms. Patient was admitted for acute appendicitis. She was kept NPO and started on IVF plus IV abx. Patient was booked for laparoscopic appendectomy in OR. Patient had procedure in late afternoon and tolerated the procedure well no apparent complications. This morning, patient reports to feeling [facility] better. She is tolerating diet, passing flatus, and urinating without difficulty. Patient is ambulating. Patient is eager to go home and was deemed medically stable for discharge to home by Dr. Starr. Patient to follow up in office within 1-2 week. No heavy lifting for 3-4 weeks. May shower. Call Dr. Starr's office for any issues. - Date & Time of H&P Date of H&P: 07/25/18 Time of H&P: 06:13 Discharge Exam - Head Exam Head Exam: ATRAUMATIC, NORMOCEPHALIC - Eye Exam Eye Exam: EOMI, Normal appearance Pupil Exam: PERRL - ENT Exam ENT Exam: Mucous Membranes Moist - Respiratory Exam Respiratory Exam: NORMAL BREATHING PATTERN - Cardiovascular Exam Cardiovascular Exam: REGULAR RHYTHM - GI/Abdominal Exam GI & Abdominal Exam: Normal Bowel Sounds, Soft. absent: Distended, Firm, Guarding, Rebound, Rigid, Tenderness Additional comments: surgical sites clean dry and intact - Extremities Exam Extremities exam: normal capillary refill, pedal pulses present - Back Exam Back exam: absent: CVA tenderness (L), CVA tenderness (R) - Neurological Exam Neurological exam: Alert, CN II-XII Intact, Oriented x3 - Psychiatric Exam Psychiatric exam: Normal Affect, Normal Mood - Skin Skin Exam: Dry, Intact, Normal Color, Warm Discharge Plan - Follow Up Plan Condition: STABLE Disposition: HOME/ ROUTINE Instructions: Laceration Repair With Glue (DC), Appendectomy, Laparoscopic Surgery (DC) Additional Instructions: Patient to follow up in office within 1-2 week. No heavy lifting for 3-4 weeks. May shower. Keep area clean and dry Call Dr. Starr's office for any issues. Paciente para seguimiento en el cargo dentro de 1-2 semanas. No levantar objetos pesados ??wenceslao 3-4 semanas. Puede ducharse. Mantenga el kimberli limpia y seca Llame a la oficina del Dr. Starr para cualquier problema. Referrals: Scott Lima MD [Staff Provider] - <Scott Lima - Last Filed: 07/27/18 16:12> Provider - Provider Date of Admission: 07/25/18 05:35 Attending physician: Scott Lima MD Hospital Course - Lab Results Lab Results: Micro Results 07/25/18 05:41 Blood Blood Culture - Preliminary NO GROWTH AFTER 48 HOURS 07/25/18 05:01 Blood Blood Culture - Preliminary NO GROWTH AFTER 48 HOURS Most Recent Lab Values WBC 11.9 K/uL (4.8-10.8) H 07/26/18 05:50 RBC 4.52 Mil/uL (3.80-5.20) 07/26/18 05:50 Hgb 13.2 g/dL (12.0-16.0) 07/26/18 05:50 Hct 39.4 % (34.0-47.0) 07/26/18 05:50 MCV 87.2 fl (81.0-99.0) 07/26/18 05:50 MCH 29.1 pg (27.0-31.0) 07/26/18 05:50 MCHC 33.4 g/dL (33.0-37.0) 07/26/18 05:50 RDW 13.1 % (11.5-14.5) 07/26/18 05:50 Plt Count 311 K/uL (130-400) 07/26/18 05:50 MPV 8.9 fl (7.2-11.7) 07/26/18 05:50 Neut % (Auto) 91.1 % (50.0-75.0) H 07/26/18 05:50 Lymph % (Auto) 7.0 % (20.0-40.0) L 07/26/18 05:50 [place] % (Auto) 1.9 % (0.0-10.0) 07/26/18 05:50 Eos % (Auto) 0.0 % (0.0-4.0) 07/26/18 05:50 Baso % (Auto) 0.0 % (0.0-2.0) 07/26/18 05:50 Neut # (Auto) 10.8 K/uL (1.8-7.0) H 07/26/18 05:50 Lymph # (Auto) 0.8 K/uL (1.0-4.3) L 07/26/18 05:50 [place] # (Auto) 0.2 K/uL (0.0-0.8) 07/26/18 05:50 Eos # (Auto) 0.0 K/uL (0.0-0.7) 07/26/18 05:50 Baso # (Auto) 0.0 K/uL (0.0-0.2) 07/26/18 05:50 Neutrophils % (Manual) 84 % (42-75) H 07/26/18 05:50 Band Neutrophils % 7 % (0-2) H 07/26/18 05:50 Lymphocytes % (Manual) 7 % (20-50) L 07/26/18 05:50 Monocytes % (Manual) 2 % (0-10) 07/26/18 05:50 Platelet Estimate Normal (NORMAL) 07/26/18 05:50 Large Platelets Present 07/26/18 05:50 Poikilocytosis (manual Slight 07/26/18 05:50 Anisocytosis (manual) Slight 07/26/18 05:50 [place] Cells Slight 07/26/18 05:50 PT 11.1 Seconds (9.8-13.1) 07/25/18 05:01 INR 1.0 07/25/18 05:01 APTT 30.7 Seconds (25.6-37.1) 07/25/18 05:01 pO2 81 mm/Hg (30-55) H 07/25/18 05:53 VBG pH 7.45 (7.32-7.43) H 07/25/18 05:53 VBG pCO2 34 mmHg (40-60) L 07/25/18 05:53 VBG HCO3 25.0 mmol/L 07/25/18 05:53 VBG Total CO2 24.6 mmol/L (22-28) 07/25/18 05:53 VBG O2 Sat (Calc) 99.6 % (40-65) H 07/25/18 05:53 VBG Base Excess 0.1 mmol/L (0.0-2.0) 07/25/18 05:53 VBG Potassium 3.8 mmol/L (3.6-5.2) 07/25/18 05:53 Sodium 135.0 mmol/L (132-148) 07/25/18 05:53 Chloride 106.0 mmol/L (98-107) 07/25/18 05:53 Glucose 104 mg/dL (65-105) 07/25/18 05:53 Lactate 1.4 mmol/L (0.7-2.1) 07/25/18 05:53 FiO2 21.0 % 07/25/18 05:53 Sodium 133 mmol/l (132-148) 07/26/18 05:50 Potassium 3.7 MMOL/L (3.6-5.0) 07/26/18 05:50 Chloride 101 mmol/L (98-107) 07/26/18 05:50 Carbon Dioxide 21 mmol/L (22-30) L 07/26/18 05:50 Anion Gap 15 (10-20) 07/26/18 05:50 BUN 7 mg/dl (7-17) 07/26/18 05:50 Creatinine 0.5 mg/dl (0.7-1.2) L 07/26/18 05:50 Est GFR ( Amer) > 60 07/26/18 05:50 Est GFR (Non-Af Amer) > 60 07/26/18 05:50 Random Glucose 135 mg/dL (65-105) H 07/26/18 05:50 Calcium 8.6 mg/dL (8.4-10.2) 07/26/18 05:50 Total Bilirubin 1.0 mg/dl (0.2-1.3) 07/26/18 05:50 AST 26 U/L (14-36) 07/26/18 05:50 ALT 30 U/L (9-52) 07/26/18 05:50 Alkaline Phosphatase 49 U/L (38-126) 07/26/18 05:50 Total Protein 7.1 G/DL (6.3-8.2) 07/26/18 05:50 Albumin 4.1 g/dL (3.5-5.0) 07/26/18 05:50 Globulin 3.1 gm/dL (2.2-3.9) 07/26/18 05:50 Albumin/Globulin Ratio 1.3 (1.0-2.1) 07/26/18 05:50 Lipase 35 U/L (23-300) 07/24/18 23:14 Venous Blood Potassium 3.8 mmol/L (3.6-5.2) 07/25/18 05:53 Blood Type O POSITIVE 07/25/18 05:41 Blood Type Confirm O POSITIVE 07/25/18 11:20 Antibody Screen Negative 07/25/18 05:41 BBK History Checked No verified bt 07/25/18 05:41
== END 2018-07-26 13:09 | disposition home or self-care (01) | DRG 225 ==
LOC: H.ER 22:22 → H.ERHOLD 07-25 05:35 → H.MEDSURG1 07-25 06:50
PROVIDERS: ADMIT Surgery; ATTEND Surgery
PROC: 0DTJ4ZZ Resection of Appendix, Percutaneous Endoscopic Approach (ICD-10-PCS; principal; 2018-07-25 16:00)
DX: K35.80 Unspecified acute appendicitis (principal); F41.9 Anxiety disorder, unspecified; K29.70 Gastritis, unspecified, without bleeding